=== PATIENT | female | born 1950 | race Caucasian/White ===

== ENCOUNTER 2019-10-24 20:41 | Inpatient (IN) ==
[2019-10-24] MEDS ORDERED: SODIUM CHLORIDE 0.9% 1,000 ML IV STA ×2 (21:08→22:18)
[2019-10-24 21:46] LABS: Basophils % 0.3 % (0.0-0.8); Eosinophils % 0.3 % (0.00-10.9); Hematocrit 34.7 VOL% (35.7-47.0); Hemoglobin 10.6 GM/DL (12.0-16.0); Immature Granulocytes % 6.1 %; Immature Granulocytes Absolute 0.38 #; Lymphocytes # 0.6 10*3/uL (1.4-4.0); Lymphocytes % 8.9 % (21.3-54.2); Mean Corpuscular HGB Conc 30.5 GM/DL (32-36); Mean Corpuscular Volume 102.7 FL (87-102); Mean Platelet Volume 9.8 FL (9.6-12.0); Monocytes % 9.1 % (1.7-12.7); NRBC # 0.49 10*3/uL; Neutrophils % 75.3 % (38.7-73.9); Red Blood Count 3.38 MC/CUMM (3.8-5.5); Red Cell Distribution Width 23.1 % (9.3-17.3); White Blood Count 6.3 T/CUMM (4-12)
[2019-10-24 21:50] LABS: Platelet Count 28 T/CUMM (130-400)
[2019-10-24 22:06] LABS: Anisocytosis 1+; Band Neutrophils 5 % (0-10); Lymphocytes 10 % (20-55); Nucleated Red Blood Cells 5 (0-5); Segmented Neutrophils 78 % (50-85); Total Cells Counted 100
[2019-10-24 22:07] LABS: Alanine Aminotransferase 58 U/L (13-56); Albumin 2.2 G/DL (3.4-5.0); Alkaline Phosphatase 921 U/L (45-117); Aspartate Amino Transferase 165 U/L (0-37); Blood Urea Nitrogen 37 MG/DL (7-18); Estimated Glom Filtration Rate 70 ML/MIN; Glucose 97 MG/DL (74-106); Osmolality,Calculated 278.1 MOS/KG (273-304); Polychromasia 1+; Tear Drop Cells 1+; Total Protein 5.3 G/DL (6.4-8.3)
[2019-10-24 22:08] LABS: Burr Cells Few; Platelet Estimate Decreased; Schistocytes Few
[2019-10-24 22:08] LABS: Apearance,Urine CLEAR (Clear); Bilirubin,Urine Negative (Negative); Blood, Urine Negative (Negative); Glucose,Urine (UA) Negative (Negative); Hyaline Casts,Urine 5 /LPF (0-3); Ketones,Urine 20 mg/dL (Negative); Mucus,Urine Occasional /LPF (Occasional); Nitrite,Urine Negative (Negative); Protein,Urine Negative; Squamous Epithelial Cell,Urine Occasional /HPF (0-10); Urine Color Amber (Yellow); WBC,Urine 1 /HPF (0-6)
[2019-10-24] MEDS ORDERED: CEFEPIME 1,000 MG in SODIUM CHLORIDE 0.9% 100 ML IV STA (22:17)
[2019-10-24 22:23] LABS: Ferritin 540.9 ng/ml (8-252)
[2019-10-24] MEDS ORDERED: ETOMIDATE 20 MG/10 ML VIAL IV ONE (22:41)
[2019-10-24] MEDS ORDERED: ROCURONIUM 100 MG/10 ML VIAL IV ONE (22:42)
[2019-10-24] MEDS ORDERED: GLUCAGON 1 MG VIAL IM PRN (23:52)
[2019-10-24] MEDS ORDERED: DEXTROSE 10% 250 ML BAG IV PRN (23:52)
[2019-10-24] MEDS ORDERED: ONDANSETRON 4 MG/2 ML VIAL IV PRN (23:52)
[2019-10-25] MEDS: SODIUM BICARB INJ 50 MEQ in SODIUM CHLORIDE 0.45% 1,000 ML IV SCH ×3 (02:13→22:45)
[2019-10-25] MEDS: VANCOMYCIN INJ 1,000 MG in SODIUM CHLORIDE 0.9% 250 ML IV SCH ×2 (02:46→13:21)
[2019-10-25] MEDS: CEFEPIME 1,000 MG in SODIUM CHLORIDE 0.9% 100 ML IV SCH ×3 (06:06→17:38)
[2019-10-25 08:30] LABS: Basophils # 0.1 10*3/uL (0.0-0.2); Basophils % 0.5 % (0.0-0.8); Eosinophils % 0.2 % (0.00-10.9); Hematocrit 37.8 VOL% (35.7-47.0); Hemoglobin 11.5 GM/DL (12.0-16.0); Immature Granulocytes % 5.1 %; Immature Granulocytes Absolute 0.52 #; Lymphocytes # 0.9 10*3/uL (1.4-4.0); Lymphocytes % 8.4 % (21.3-54.2); Mean Corpuscular HGB Conc 30.4 GM/DL (32-36); Mean Corpuscular Volume 104.4 FL (87-102); Monocytes % 9.2 % (1.7-12.7); NRBC # 0.76 10*3/uL; Neutrophils % 76.6 % (38.7-73.9); Red Blood Count 3.62 MC/CUMM (3.8-5.5); Red Cell Distribution Width 23.4 % (9.3-17.3); White Blood Count 10.1 T/CUMM (4-12)
[2019-10-25 08:35] LABS: Platelet Count 21 T/CUMM (130-400)
[2019-10-25 09:05] LABS: Calcium 8.5 MG/DL (8.5-10.1); Osmolality,Calculated 280.7 MOS/KG (273-304); Total Protein 5.1 G/DL (6.4-8.3)
[2019-10-25 09:19] LABS: Band Neutrophils 10 % (0-10); Lymphocytes 4 % (20-55); Metamyelocytes 1 %; Nucleated Red Blood Cells 6 (0-5); Segmented Neutrophils 81 % (50-85); Total Cells Counted 100
[2019-10-25 09:20] LABS: Acanthocytes Few; Anisocytosis 1+; Tear Drop Cells Slight
[2019-10-25] MEDS: PANTOPRAZOLE 40 MG TABLET PO SCH (09:20)
[2019-10-25 09:21] LABS: Burr Cells Few; Ovalocytes Few; Polychromasia Few
[2019-10-25 09:22] LABS: Platelet Estimate Decreased
[2019-10-25] MEDS ORDERED: METOPROLOL SUCCINATE XL 25 MG TABLET PO SCH (21:00)
[2019-10-26] MEDS: CEFEPIME 1,000 MG in SODIUM CHLORIDE 0.9% 100 ML IV SCH ×3 (00:37→11:53)
[2019-10-26] MEDS: VANCOMYCIN INJ 1,000 MG in SODIUM CHLORIDE 0.9% 250 ML IV SCH ×2 (02:30→13:34)
[2019-10-26 05:58] LABS: Basophils % 0.5 % (0.0-0.8); Eosinophils % 0.3 % (0.00-10.9); Hematocrit 31.9 VOL% (35.7-47.0); Hemoglobin 9.7 GM/DL (12.0-16.0); Immature Granulocytes % 5.9 %; Immature Granulocytes Absolute 0.36 #; Lymphocytes # 0.7 10*3/uL (1.4-4.0); Lymphocytes % 11.3 % (21.3-54.2); Mean Corpuscular HGB Conc 30.4 GM/DL (32-36); Mean Corpuscular Volume 105.3 FL (87-102); Red Blood Count 3.03 MC/CUMM (3.8-5.5); Red Cell Distribution Width 23.3 % (9.3-17.3); White Blood Count 6.1 T/CUMM (4-12)
[2019-10-26 06:13] LABS: Platelet Count 22 T/CUMM (130-400)
[2019-10-26 06:28] LABS: Calcium 8.3 MG/DL (8.5-10.1); Osmolality,Calculated 281.5 MOS/KG (273-304)
[2019-10-26 06:33] LABS: Anisocytosis 2+; Band Neutrophils 4 % (0-10); Eosinophils 1 % (0-10); Lymphocytes 9 % (20-55); Macrocytosis 1+; Metamyelocytes 2 %; Nucleated Red Blood Cells 9 (0-5); Platelet Estimate Decreased; Segmented Neutrophils 82 % (50-85); Total Cells Counted 100
[2019-10-26 07:30] LABS: Albumin 1.9 G/DL (3.4-5.0); Bilirubin,Direct 2.53 MG/DL (0.0-0.20); Bilirubin,Total 3.5 MG/DL (0.2-1.0); Total Protein 4.9 G/DL (6.4-8.3)
[2019-10-26] MEDS: PANTOPRAZOLE 40 MG TABLET PO SCH (08:55)
[2019-10-26] MEDS ORDERED: oxyCODONE/ACETAMINOPHEN 5-325 MG TABLET PO PRN (09:59)
[2019-10-26] MEDS: MORPHINE 4 MG/1 ML VIAL IV PRN ×2 (10:14→15:16)
[2019-10-26] MEDS: SODIUM BICARB INJ 50 MEQ in SODIUM CHLORIDE 0.45% 1,000 ML IV SCH (10:55)
[2019-10-26 16:08] VITALS: BP 96/50
== END 2019-10-26 16:13 | disposition hospice, home (50) | DRG 871 ==
LOC: EDUNIT# → EDBD → N.ED 20:41 → N.EDINP 23:52 → SUPCPDRO 23:52 → N.4E 10-25 04:04
PROVIDERS: ADMIT Internal Medicine; ATTEND Internal Medicine